=== PATIENT | female | born 1985 ===

== ENCOUNTER 2022-07-04 00:01 | Inpatient (IN) ==
[2022-07-04 01:32] LABS: ABS Basophils 0.1 10^3/ul (0-0.2); ABS Eosinophils 0.1 10^3/ul (0-0.6); ABS Lymphocytes 2.3 10^3/ul (1.0-4.8); ABS Monocytes 0.5 10^3/ul (0-0.8); Eosinophil % 1.1 %; Hematocrit 36 % (35-47); Hemoglobin 11.6 g/dL (12.0-16.0); Lymphocyte % 25.4 %; Mean Corpuscular HGB Conc 32 g/dL (31-36); Mean Corpuscular Hemoglobin 25 pg (27-31); Mean Corpuscular Volume 77 fL (80-97); Mean Platelet Volume 7.5 fL (7.4-10.4); Platelet Count 316 10^3/uL (150-450); Red Blood Count 4.69 10^6 /uL (3.70-4.87); Red Cell Distribution Width 16 % (10-15); White Blood Count 8.9 10^3/uL (3.5-10.8)
[2022-07-04 01:34] LABS: Urine Appearance Clear; Urine Bilirubin Negative (Negative); Urine Blood Negative (Negative); Urine Color Colorless; Urine Glucose Negative (Negative); Urine Ketones Negative (Negative); Urine Nitrite Negative (Negative); Urine Protein Negative (Negative); Urine Specific Gravity 1.003 (1.002-1.030); Urine Urobilinogen Negative (Negative)
[2022-07-04 02:00] LABS: Urine Benzodiazepine Screen None Detected (None Detect); Urine Cannabinoids Screen None Detected (None Detect); Urine Opiates Screen None Detected (None Detect)
[2022-07-04 02:52] LABS: TSH Ultra Thyroid Stim Horm 4.03 mcIU/mL (0.34-5.60)
[2022-07-04 03:03] LABS: Albumin 4.3 g/dL (3.2-5.2); Anion Gap 10 mmol/L (2-11); CO2 Carbon Dioxide 27 mmol/L (22-32); Calcium 9.8 mg/dL (8.6-10.3); Chloride 101 mmol/L (101-111); Potassium 4.2 mmol/L (3.5-5.0); Sodium 138 mmol/L (135-145)
[2022-07-04 03:09] LABS: ALT 13 U/L (7-52); AST 13 U/L (13-39); Acetaminophen < 15 mcg/mL; Albumin/Globulin Ratio 1.5 (1-3); Alcohol, S < 13 mg/dL (<13); Alkaline Phosphatase 119 U/L (35-149); Blood Urea Nitrogen 13 mg/dL (6-24); Globulin 2.8 g/dL (2-4); Glucose 90 mg/dL (70-100); Salicylate < 2.50 mg/dL (<30); Total Protein 7.1 g/dL (6.4-8.9); eGFR CKD-EPI 106.4 (>60)
[2022-07-04] MEDS ORDERED: Al Hydrox/Mg Hydrox/Simet LIQ 30 ML UDC PO PRN (06:39)
[2022-07-04] MEDS: Vitamin THERAPEUTIC TAB PO SCH (09:41)
[2022-07-05] MEDS: Vitamin THERAPEUTIC TAB PO SCH (07:56)
[2022-07-05 09:47] LABS: HDL Cholesterol 48.5 mg/dL
[2022-07-06] MEDS: Vitamin THERAPEUTIC TAB PO SCH (08:47)
[2022-07-07 07:47] VITALS: BP 144/83
[2022-07-07] MEDS: Vitamin THERAPEUTIC TAB PO SCH (09:18)
== END 2022-07-07 11:05 | disposition home or self-care (01) | DRG 751 ==
LOC: ED 00:01 → EDHOLD 05:20 → BSU 06:20
PROVIDERS: ADMIT Psychiatry & Neurology Psychiatry; ATTEND Psychiatry & Neurology Psychiatry